=== PATIENT | male | born 1990 | race Caucasian/White ===

== ENCOUNTER 2016-08-12 11:30 | Emergency (ER) | payer MEDICAID, OTHER ==
[2016-08-12 11:45] VITALS: BP 133/87; PULSE 104; RESP 20; TEMP 98.2; O2SAT 92
[2016-08-12] MEDS ORDERED: IPRATROPIUM/ALBUTEROL 3 ML DEYVIAL IH ONE (11:46)
--- NOTE | 2016-08-12 12:25 | UCPHY ---
H & P Time Seen by Provider: 08/12/16 12:09 Patient Type: Established HPI/ROS: This patient presents with a chief complaint of an asthma attack which he attributes the fact that he has run out of his medication. His inhaled steroid was finished in June any has been unable to refill less because of insurance concerns. His albuterol inhaler was finished several days ago. He denies any cold symptoms including nasal congestion, sore throat, fever or ear pain. He believes that prednisone would be beneficial. Smoking Status: Never smoked Physical Exam: GENERAL: Well-appearing, well-nourished and in no acute distress. HEAD: Atraumatic, normocephalic. EYES: , sclera anicteric, conjunctiva are normal. ENT: nares patent, oropharynx clear without exudates. Moist mucous membranes. NECK: Normal range of motion, supple without lymphadenopathy or JVD. LUNGS: My examination was done after the patient had had a DuoNeb and was feeling much improved. There was some mild prolongation of the respiratory phase and also some mild expiratory wheezes. I did not appreciate and rales or rhonchi.. HEART: Regular rate and rhythm EXTREMITIES: Normal range of motion, no pitting or edema. No clubbing or cyanosis. NEUROLOGICAL: Cranial nerves II through XII grossly intact. Normal speech, normal gait. PSYCH: Normal mood, normal affect. SKIN: Warm, dry, normal turgor, no visible rashes or lesions. Constitutional: Initial Vital Signs Temperature (C) 36.8 C 08/12/16 11:43 Heart Rate 104 H 08/12/16 11:43 Respiratory Rate 20 08/12/16 11:43 Blood Pressure 133/87 H 08/12/16 11:43 O2 Sat (%) 92 08/12/16 11:43 O2 Delivery Mode Room Air Allergies/Adverse Reactions: No Known Allergies Allergy (Unverified 08/12/16 11:43) Home Medications: Medication Instructions Recorded Albuterol 08/12/16 Albuterol [Albuterol HFA 8 gm] 2 puffs IH QID #1 mdi 08/12/16 Asmanex Hfa 08/12/16 Fluticasone Hfa 110 Mcg [Flovent 1 puffs IH BID #1 mdi 08/12/16 110 MCG Hfa MDI (*)] predniSONE 20 mg PO DAILY #14 tablet 08/12/16 Medical Decision Making Differential Diagnosis: I believe that this patient has experienced an asthma exacerbation because of the lack of his medications. There is no finding that would suggest an infectious process at this time. I do not feel further investigation is necessary. - Data Points Medications Given: Discontinued Medications Albuterol/Ipratropium (Duoneb) 3 ml IH EDNOW ONE Stop: 08/12/16 11:47 Last Admin: 08/12/16 12:17 Dose: 3 ml Departure - Departure Disposition: Home, Routine, Self-Care Clinical Impression: Asthma exacerbation Condition: Good Instructions: Bronchospasm (ED) Additional Instructions: Usual medications as directed. If your asthma attack is not improved in 2 or 3 days you should return. You should be seen immediately if her symptoms worsen. Referrals: DALI FELTON [Primary Care Provider] - As per Instructions Prescriptions: Albuterol [Albuterol HFA 8 gm] 2 puffs IH QID #1 mdi Fluticasone Hfa 110 Mcg [Flovent 110 MCG Hfa MDI (*)] 1 puffs IH BID #1 mdi predniSONE 20 mg PO DAILY #14 tablet - PQRS PQRS Measurement: Not applicable
== END 2016-08-12 12:27 | disposition home or self-care (01) ==
LOC: CED 11:30
DX: J44.1 Chronic obstructive pulmonary disease with (acute) exacerbation (principal)
CPT/HCPCS: 99214-PO; G0463-PO

== ENCOUNTER 2017-03-13 20:38 | Emergency (ER) | payer OTHER ==
[2017-03-13 20:49] VITALS: RESP 16; TEMP 98.2
[2017-03-13] MEDS ORDERED: KETOROLAC 30 MG/1 ML SDV IM ONE (20:58)
--- NOTE | 2017-03-13 21:04 | EDPHY ---
H & P Stated Complaint: l shoulder pain Time Seen by Provider: 03/13/17 20:55 HPI/ROS: CHIEF COMPLAINT: left shoulder pain HISTORY OF PRESENT ILLNESS: Patient complains of left shoulder pain. This started around 5:00 p.m. this evening. It is a deep pain. It is constant duration. [id number]. Worse with palpation anteriorly. Sometimes worse with movement sometimes not. Similar to previous episodes of pain left shoulder that he has had the wake him up at night. Difficult for him to quantify the previous episodes. Never been formally evaluated for this. No trauma but does have repetitive motions including swimming in multiple sports. Did have some mild abdominal discomfort this afternoon after eating at a [employer] party but this spontaneously resolved. No current abdominal complaints are nausea or vomiting. No fever chills. No radiating pain. No sensory complaints. No other associated complaints or modifying factors. REVIEW OF SYSTEMS: Ten systems reviewed and are negative unless otherwise noted in the HPI PAST MEDICAL HISTORY: Chronic left shoulder.. No formal diagnoses SOCIAL HISTORY: Nonsmoker. Occasional alcohol. FAMILY HISTORY: Noncontributory EXAMINATION General Appearance: Alert, no distress Head: normocephalic, atraumatic Eyes: Pupils equal and round, no conjunctival pallor or injection ENT, Mouth: Mucous membranes moist. Airway widely patent. Uvula midline. Neck: Normal inspection, supple, non-tender Respiratory: Lungs are clear to auscultation no wheeze, rhonchi or crackles Cardiovascular: Regular rate and rhythm. No murmur. Gastrointestinal: Abdomen is soft and nontender Back: non-tender, no bony abnormalities Neurological: A&O, nonfocal, normal gait. Strength is symmetric in all 4 limbs. Skin: Warm and dry, no rash Extremities: Tenderness of the left bicipital groove exacerbated by flexion of the elbow. There is positive Speed test. Negative Yergason's. Negative D can. No apprehension of the shoulder. No bony tenderness of the left elbow. Range of motion of the left wrist and elbow are intact and symmetric to the right. Neurovascular intact distal to the area of pain. Psychiatric: Mood and affect normal DIFFERENTIAL DIAGNOSES: Including but not limited to biceps tendinitis, slap tear, rotator cuff injury, sprain, strain, fracture MDM: 9:00 p.m. Left shoulder pain that is reproducible in the bicipital groove and with labral stress. No bony tenderness. Did have mild abdominal pain earlier that resolved. No nausea or vomiting. Benign abdominal examination. Vital signs stable. X-ray of the shoulder has been ordered. 9:25 p.m. X-ray as interpreted by me reveals no acute findings. Treat him for the possibility of soft tissue injury with anti-inflammatories and short course of pain medication. Referred to Orthopedics for definitive care. He is comfortable this plan and discharged home stable condition. SUPERVISION: This patient was independently evaluated without direct examination by the attending physician. Case was discussed with attending physician. Source: Patient Exam Limitations: No limitations - Personal History Current Tetanus/Diphtheria Vaccine: Yes - Medical/Surgical History Hx Asthma: Yes Hx Chronic Respiratory Disease: No Hx Diabetes: No Hx Cardiac Disease: No Hx Renal Disease: No Hx Cirrhosis: No Hx Alcoholism: No Hx HIV/AIDS: No Hx Splenectomy or Spleen Trauma: No Other PMH: Asthma - Social History Smoking Status: Never smoked Constitutional: Initial Vital Signs Temperature (C) 98.2 F 03/13/17 20:48 Heart Rate 68 03/13/17 20:48 Respiratory Rate 16 03/13/17 20:48 Blood Pressure 159/79 H 03/13/17 20:48 O2 Sat (%) 93 03/13/17 20:48 O2 Delivery Mode Room Air Allergies/Adverse Reactions: No Known Allergies Allergy (Unverified 03/13/17 20:50) Home Medications: Medication Instructions Recorded Acetaminophen/Codeine 300/30Mg 1 each PO Q6 PRN #11 tab 03/13/17 [Tylenol #3 (*)] Albuterol 5 mg/ml INH [Proventil] 2.5 mg IH QID 03/13/17 Beclomethasone Dipropionate [Qvar] 8.7 gm IH 03/13/17 Medical Decision Making - Data Points Medications Given: Discontinued Medications Ketorolac Tromethamine (Toradol) 30 mg IM EDNOW ONE Stop: 03/13/17 20:59 Last Admin: 03/13/17 21:13 Dose: 30 mg Departure - Departure Disposition: Home, Routine, Self-Care Clinical Impression: Biceps tendinitis on left Shoulder pain, acute Qualifiers: Laterality: left Qualified Code(s): M25.512 - Pain in left shoulder Condition: Good Instructions: Shoulder Sprain (ED), Tendinitis (ED) Additional Instructions: 1. Weightbearing as tolerated 2. Follow up with Orthopedics for definitive care 3. Return to ER for worsening pain, numbness, tingling, weakness, fever Referrals: MARIE ROSALES [Other] - As per Instructions Abel Bhagat MD [Medical Doctor] - As per Instructions Prescriptions: Acetaminophen/Codeine 300/30Mg [Tylenol #3 (*)] 1 each PO Q6 PRN #11 tab PRN Reason: Pain, Mild
[2017-03-13 21:57] VITALS: BP 145/82; PULSE 59; O2SAT 98
== END 2017-03-13 21:56 | disposition home or self-care (01) ==
DX: M75.22 Bicipital tendinitis, left shoulder (principal); J45.909 Unspecified asthma, uncomplicated
CPT/HCPCS: J1885